=== PATIENT | male | born 1960 | race Caucasian/White ===

== ENCOUNTER 2016-10-30 02:14 | Emergency (ER) | payer BC, OTHER ==
[2016-10-30] MEDS ORDERED: NORMAL SALINE 1000 ML 1,000 ML IV ONE ×3 (02:47→07:11)
[2016-10-30] MEDS ORDERED: ONDANSETRON HCL INJ/PF 4 MG/2 ML SDV IV ONE ×3 (03:05→17:48)
[2016-10-30] MEDS ORDERED: FENTANYL CITRATE INJ/PF 100 MCG/2 ML AMPUL IV ONE ×5 (03:05→06:33)
--- NOTE | 2016-10-30 03:19 | RADIOLOGY REPORT (SQ) ---
EXAM DESCRIPTION: CHEST SINGLE VIEW COMPLETED DATE/TIME: 10/30/2016 3:00 am REASON FOR STUDY: hypotension COMPARISON: 06/02/2014. EXAM PARAMETERS: NUMBER OF VIEWS: One view. TECHNIQUE: Single frontal radiographic view of the chest acquired. RADIATION DOSE: NA LIMITATIONS: None. FINDINGS: LUNGS AND PLEURA: No opacities, masses or pneumothorax. No pleural effusion. MEDIASTINUM AND HILAR STRUCTURES: No masses. Contour normal. HEART AND VASCULAR STRUCTURES: Moderate enlargement of the cardiac silhouette, chronic. BONES: No acute findings. HARDWARE: None in the chest. OTHER: No other significant finding. IMPRESSION: NO ACUTE RADIOGRAPHIC FINDING IN THE CHEST. Moderate cardiac silhouette enlargement, ch ronic. TECHNICAL DOCUMENTATION: JOB ID: [id number]
[2016-10-30 03:20] LABS: VENOUS BLOOD BASE EXCESS 0.4 mmol/L; VENOUS BLOOD HCO3 27.9 mmol/L (20-32); VENOUS BLOOD PCO2 57.3 mmHg (35-63); VENOUS BLOOD PH 7.31 (7.30-7.42)
[2016-10-30 03:21] LABS: ABSOLUTE BASOPHILS # (AUTO) 0.1 10^3/uL (0.0-0.2); ABSOLUTE EOSINOPHILS # (AUTO) 0.3 10^3/uL (0.0-0.6); ABSOLUTE LYMPHOCYTES (AUTO) 3.1 10^3/uL (0.5-4.7); ABSOLUTE MONOCYTES (AUTO) 1.2 10^3/uL (0.1-1.4); ABSOLUTE NEUT (AUTO) 8.9 10^3/uL (1.7-8.2); BASOPHILS % (AUTO) 0.7 % (0-2); EOSINOPHILS % (AUTO) 2.4 % (0-6); HEMATOCRIT 43.3 % (37.9-51.0); HEMOGLOBIN 14.1 g/dL (13.5-17.0); LYMPHOCYTES % (AUTO) 22.9 % (13-45); MEAN CORPUSCULAR HEMOGLOBIN 29.2 pg (27.0-33.4); MEAN CORPUSCULAR HGB CONC 32.6 g/dL (32.0-36.0); MEAN CORPUSCULAR VOLUME 90 fl (80-97); MONOCYTES % (AUTO) 9.1 % (3-13); RED BLOOD COUNT 4.83 10^6/uL (4.35-5.55); RED CELL DISTRIBUTION WIDTH 14.2 % (11.5-14.0); SEGMENTED NEUTROPHILS % (AUTO) 64.9 % (42-78); WHITE BLOOD COUNT 13.6 10^3/uL (4.0-10.5)
[2016-10-30 03:23] LABS: PROTHROMBIN TIME 12.7 SEC (11.4-15.4)
[2016-10-30 03:33] LABS: ALANINE AMINOTRANSFERASE 42 U/L (21-72); ALBUMIN 4.3 g/dL (3.5-5.0); ALKALINE PHOSPHATASE 66 U/L (38-126); ANION GAP 13 (5-19); ASPARTATE AMINO TRANSFERASE 24 U/L (17-59); BILIRUBIN,DIRECT 0.3 mg/dL (0.0-0.4); BILIRUBIN,TOTAL 0.4 mg/dL (0.2-1.3); BLOOD UREA NITROGEN 18 mg/dL (7-20); CALCIUM 9.5 mg/dL (8.4-10.2); CARBON DIOXIDE 30 mmol/L (22-30); CHLORIDE 93 mmol/L (98-107); CREATINE KINASE 211 U/L (55-170); CREATININE RESULT 1.28 mg/dL (0.52-1.25); GLUCOSE 131 mg/dL (75-110); SODIUM 135.6 mmol/L (137-145)
[2016-10-30 03:44] LABS: CREATINE KINASE MB 1.28 ng/mL (<4.55)
[2016-10-30 03:49] LABS: LIPASE 14499.3 U/L (23-300)
[2016-10-30 03:51] LABS: TROPONIN I < 0.012 ng/mL
--- NOTE | 2016-10-30 04:52 | RADIOLOGY REPORT (SQ) ---
EXAM DESCRIPTION: CT ABD/PELVIS WITH IV ONLY COMPLETED DATE/TIME: 10/30/2016 4:26 am REASON FOR STUDY: abd pain ,n/v, hypotension, h/o pancreatitis COMPARISON: 3 TECHNIQUE: CT scan of the abdomen and pelvis performed using helical scanning technique with dynamic intravenous contrast injection. No oral contrast. Images reviewed with lung, soft tissue, and bone windows. Reconstructed coronal and sagittal MPR images reviewed. Delayed images for evaluation of the urinary system also acquired. All images stored on PACS. All CT scanners at this facility use dose modulation, iterative reconstruction, and/or weight based d osing when appropriate to reduce radiation dose to as low as reasonably achievable (ALARA). [facility]: Dose Right [facility]: CareDose [facility]: Dose Right [facility]: Teradose 4D [facility]: to be CONTRAST TYPE AND DOSE: contrast/concentration: Isovue 370.00 mg/ml; Total Contrast Delivered: 89.0 ml; Total Saline Delivered: 67.0 ml RENAL FUNCTION: Creatinine 1.3 RADIATION DOSE: Up-to-date CT equipment and radiation dose reduction techniques were employed. CTDIv ol: 13.2 mGy. DLP: 1482 mGy-cm.. LIMITATIONS: None. FINDINGS: LOWER CHEST: Small atelectasis or scar bilateral lower lobes. LIVER: Normal size. No masses. No dilated ducts. SPLEEN: Normal size. No focal lesions. PANCREAS: Partial, less than 30% necrosis of the pancreatic head and pancreatic body with moderate thornton rrounding fluid extending around the duodenum. There is edematous enlargement of the pancreatic head . GALLBLADDER: No identified stones by CT criteria. No inflammatory changes to suggest cholecystitis. ADRENAL GLANDS: No significant masses or asymmetry. RIGHT KIDNEY AND URETER: No solid masses. No significant calcifications. No hydronephrosis or hyd roureter. LEFT KIDNEY AND URETER: No solid masses. No significant calcifications. No hydronephrosis or hydr oureter. AORTA AND VESSELS: No aneurysm. No dissection. Renal arteries, SMA, celiac without stenosis. RETROPERITONEUM: No retroperitoneal adenopathy, hemorrhage or masses. BOWEL AND PERITONEAL CAVITY: No masses or inflammatory changes. No free fluid or peritoneal masses. APPENDIX: Normal. PELVIS: No mass. No free fluid. Normal bladder. ABDOMINAL WALL: No masses. No hernias. BONES: 0.8 cm bone island of the left superior pubic ramus. OTHER: No other significant finding. IMPRESSION: Partial necrotizing pancreatitis. TECHNICAL DOCUMENTATION: JOB ID: [id number] Quality ID # [id number]: Final reports with documentation of one or more dose reduction techniques (e.g., Au tomated exposure control, adjustment of the mA and/or kV according to patient size, use of iterative reconstruction technique) 2010 [employer]- All Rights Reserved
--- NOTE | 2016-10-30 05:31 | ER Document Report ---
ED GI/ - General Mode of Arrival: Medic Information source: Patient, Relative - Spouse TRAVEL OUTSIDE OF THE U.S. IN LAST 30 DAYS: No - HPI Patient complains to provider of: Abdominal pain <AURA MAK - Last Filed: 10/30/16 05:59> <CHRISTIANDONTE ANN - Last Filed: 10/30/16 06:09> - General Chief Complaint: Abdominal Pain Stated Complaint: ABDOMINAL PAIN Time Seen by Provider: 10/30/16 02:46 Notes: Patient is a 56-year-old male presenting emergency department for severe abdominal pain. Patient states his pain feels like something is pushing up into his ribs and states that it feels the same as when he last had pancreatitis. Patient had pancreatitis in 2014 and was transferred to [facility] for such. Patient is also having a low blood pressure and he usually has hypertension for which he takes lisinopril. Patient states that if he has to be transferred they would rather go to [place]. Patient is also having some slight back pain. Patient was given 80 mg fentanyl via EMS. Patient also complains of some nausea and distention. Patient denies any alcohol use or cigarette use. Patient is allergic to Dilaudid. PCP Dr. Vamsi Sinha [facility] (AURA MAK) - Related Data Allergies/Adverse Reactions: hydromorphone [From Dilaudid] Allergy (Verified 10/30/16 02:47) Home Medications: Current Home Medications Gabapentin 900 mg PO TID 10/30/16 [History] Lipase/Protease/Amylase [Jaja Tran 12,000 Units Capsule] 2 cap PO TID 10/30/16 [ History] Lisinopril/Hydrochlorothiazide [Lisinopril-Hctz 20-25 mg Tab] 1 each PO DAILY [History] Pantoprazole Sodium 40 mg PO DAILY 10/30/16 [History] Polyethylene Glycol 3350 [Gavilax] 17 gm PO DAILY 10/30/16 [History] Past Medical History - General Information source: Patient - Social History Smoking Status: Never Smoker Cigarette use (# per day): No Chew tobacco use (# tins/day): No Frequency of alcohol use: None Drug Abuse: None Family History: None Patient has suicidal ideation: No Patient has homicidal ideation: No - Medical History Medical History: Other - Pancreatitis - Past Medical History Cardiac Medical History: Reports: Hx Hypertension Pulmonary Medical History: Reports: Hx COPD GI Medical History: Reports: Other Past Surgical History: Reports: Hx Orthopedic Surgery - L elbow - Immunizations Hx Diphtheria, Pertussis, Tetanus Vaccination: Yes <AURA MAK - Last Filed: 10/30/16 05:59> Review of Systems - Review of Systems Constitutional: No symptoms reported EENT: No symptoms reported Cardiovascular: No symptoms reported Respiratory: No symptoms reported Gastrointestinal: See HPI, Abdomen distended, Abdominal pain, Nausea Genitourinary: No symptoms reported Male Genitourinary: No symptoms reported Musculoskeletal: No symptoms reported Skin: No symptoms reported Hematologic/Lymphatic: No symptoms reported Neurological/Psychological: No symptoms reported -: Yes All other systems reviewed and negative <OBDULIOAURA - Last Filed: 10/30/16 05:59> Physical Exam - Vital signs Interpretation: Hypotensive <AURA MAK - Last Filed: 10/30/16 05:59> - Vital signs Interpretation: Hypotensive - General In distress: Moderate - Respiratory Respiratory status: No respiratory distress Breath sounds: Normal - Cardiovascular Rhythm: Regular - Abdominal Distension: Distended Tenderness: Tender, Other - epigastric/periumbilical - Extremities General upper extremity: Normal inspection, Normal ROM General lower extremity: Normal inspection, Normal ROM - Neurological Neuro grossly intact: Yes Cognition: Normal Orientation: AAOx4 [place] Coma Scale Eye Opening: Spontaneous Sandra Coma Scale Verbal: Oriented Sandra Coma Scale Motor: Obeys Commands [place] Coma Scale Total: 15 Speech: Normal Motor strength normal: LUE, RUE, LLE, RLE Sensory: Normal - Skin Skin Temperature: Warm Skin Moisture: Dry Skin Color: Normal <DONTE GONZALES - Last Filed: 10/30/16 06:09> - Vital signs Vitals: Temp Pulse Resp BP Pulse Ox 97.3 F 59 L 28 H 60/40 L 94 10/30/16 02:24 10/30/16 02:24 10/30/16 02:24 10/30/16 02:24 10/30/16 02:24 Course - Laboratory Result Diagrams: 10/30/16 02:57 10/30/16 02:57 - Consults [facility] Transfer Line Time consulted: 05:10 Dr. Claudy Time consulted: 05:45 <AURA MAK - Last Filed: 10/30/16 05:59> - Laboratory Result Diagrams: 10/30/16 02:57 10/30/16 02:57 - Diagnostic Test Radiology reviewed: Reports reviewed <DONTE GONZALES - Last Filed: 10/30/16 06:09> - Re-evaluation Re-evalutation: 10/30/16 Patient is a 56-year-old male who presents with abdominal pain and nausea. Patient's initial blood pressure was 60/40. Patient has a history of necrotizing pancreatitis and had been transferred to [place] with similar symptoms in 2014. Patient was found to have a lipase of over 14,000. CT is also showing partial necrotizing pancreatitis. Patient's blood pressure has come up with fluids. The patient has been given fentanyl for pain. Patient was discussed with ICU [place] who does not feel that the patient is a ICU candidate at this time. Patient was discussed with the hospitalist service at [place] who will accept the patient to the MICU. Patient and family agree with this plan. Of note, there is no gastroenterology on today and the patient had a prolonged hospital course at [place] in 2014 with similar presentation and diagnosis. Patient is to remain n.p.o. Patient will stay on fluids and be given fentanyl for pain. Understands agrees with this plan. Stable at this time for transfer. No beds available. Care transferred to Dr. Vazquez at this time. (DONTE GONZALES) - Vital Signs Vital signs: Temp Pulse Resp BP Pulse Ox 97.3 F 59 L 16 118/83 100 10/30/16 02:24 10/30/16 02:24 10/30/16 05:31 10/30/16 05:31 10/30/16 05:31 - Laboratory Laboratory results interpreted by me: 10/30/16 10/30/16 02:57 02:57 WBC 13.6 H RDW 14.2 H Absolute Neutrophils 8.9 H Sodium 135.6 L Potassium 3.0 L* Chloride 93 L Creatinine 1.28 H Est GFR (Non-Af Amer) 58 L Glucose 131 H Creatine Kinase 211 H Lipase 37180.3 H - Consults [facility] Transfer [facility] Reason for consultation: 10/30/16 05:10 Contacted [facility] for possible transfer. 10/30/16 05:23 Spoke with the interventionalist Dr. Mera who does not think the patient needs to be in ICU. 10/30/16 05:40 Spoke with [facility], the patient will be accepted for transfer but there are not beds and he will be placed on the list for a MIU bed. (AURA MAK) Dr. Loco Reason for consultation: 10/30/16 05:[address] Loco about patient. There are no beds here. (AURA MAK) Critical Care Note - Critical Care Note Total time excluding time spent on procedures (mins): 45 - Management of hypotension, resuscitation, diagnosis of pancreatitis, coordination of transfer , counseling of patient and family, multiple re-evaluations <DONTE GONZALES - Last Filed: 10/30/16 06:09> Discharge <AURA MAK - Last Filed: 10/30/16 05:59> <DONTE GONZALES - Last Filed: 10/30/16 06:09> - Discharge Clinical Impression: Acute necrotizing pancreatitis Condition: Stable Disposition: DOTDAMADDIE Referrals: SUSHIL BELCHER MD [Primary Care Provider] - Follow up as needed Scribe Attestation: 10/30/16 06:08 I personally performed the services described in the documentation, reviewed and edited the documentation which was dictated to the scribe in my presence, and it accurately records my words and actions. (DONTE GONZALES) Scribe Documentation - Scribe Written by Andree:: Andree Mcdaniels, 10/30/2016 5:32 acting as scribe for :: Christian <AURA MAK - Last Filed: 10/30/16 05:59>
[2016-10-30] MEDS: POTASSI CL 20 MEQ/50 ML RIDER 20 MEQ/50 ML RTUPB IV SCH ×2 (06:30→09:00)
--- NOTE | 2016-10-30 08:06 | EKG REPORT ---
SEVERITY:- ABNORMAL ECG - SINUS RHYTHM INFERIOR INFARCT, AGE INDETERMINATE CONSIDER ANTERIOR INFARCT : Confirmed by: Steven Alvarado MD 30-Oct-2016 08:05:48
[2016-10-30 08:37] LABS: APPEARANCE,URINE CLEAR; BILIRUBIN,URINE NEGATIVE (NEGATIVE); GLUCOSE, URINE NEGATIVE (NEGATIVE); KETONES,URINE NEGATIVE (NEGATIVE); LEUKOCYTE ESTERASE,URINE NEGATIVE (NEGATIVE); NITRITE,URINE NEGATIVE (NEGATIVE); PROTEIN,URINE NEGATIVE (NEGATIVE); URINE SPECIFIC GRAVITY 1.027; UROBILINOGEN,URINE NEGATIVE mg/dL (<2.0)
[2016-10-30] MEDS: MORPHINE SULFATE 10 MG/ML INJ IV SCH ×5 (08:57→21:22)
[2016-10-31] MEDS: MORPHINE SULFATE 10 MG/ML INJ IV SCH ×5 (00:32→15:08)
[2016-10-31] MEDS ORDERED: ONDANSETRON HCL INJ/PF 4 MG/2 ML SDV IV ONE (08:27)
[2016-10-31 09:26] LABS: HEMATOCRIT 44.3 % (37.9-51.0); HEMOGLOBIN 14.9 g/dL (13.5-17.0); HGB HCT DIFFERENCE 0.4; MEAN CORPUSCULAR HEMOGLOBIN 29.9 pg (27.0-33.4); MEAN CORPUSCULAR HGB CONC 33.6 g/dL (32.0-36.0); MEAN CORPUSCULAR VOLUME 89 fl (80-97); RED BLOOD COUNT 4.99 10^6/uL (4.35-5.55); RED CELL DISTRIBUTION WIDTH 14.4 % (11.5-14.0); WHITE BLOOD COUNT 21.1 10^3/uL (4.0-10.5)
[2016-10-31 09:40] LABS: ALANINE AMINOTRANSFERASE 32 U/L (21-72); ALBUMIN 3.8 g/dL (3.5-5.0); ALKALINE PHOSPHATASE 64 U/L (38-126); ANION GAP 7 (5-19); ASPARTATE AMINO TRANSFERASE 25 U/L (17-59); BILIRUBIN,DIRECT 0.3 mg/dL (0.0-0.4); BILIRUBIN,TOTAL 0.7 mg/dL (0.2-1.3); BLOOD UREA NITROGEN 19 mg/dL (7-20); CALCIUM 8.5 mg/dL (8.4-10.2); CARBON DIOXIDE 29 mmol/L (22-30); CHLORIDE 99 mmol/L (98-107); CREATININE RESULT 0.77 mg/dL (0.52-1.25); GLUCOSE 140 mg/dL (75-110); POTASSIUM 4.2 mmol/L (3.6-5.0); TOTAL PROTEIN 6.7 g/dL (6.3-8.2)
[2016-10-31 09:42] LABS: BAND NEUTROPHILS % (MANUAL) 2 % (3-5); BASOPHILS % (MANUAL) 0 % (0-2); EOSINOPHILS % (MANUAL) 0 % (0-6); LYMPHOCYTES % (MANUAL) 3 % (13-45); TOTAL CELLS COUNTED 100
[2016-10-31 09:45] LABS: RBC MORPHOLOGY COMMENT NORMO-CYTIC/CHROMIC; TOXIC VACUOLATION PRESENT
[2016-10-31 09:47] LABS: LIPASE 3616.6 U/L (23-300)
[2016-10-31] MEDS ORDERED: NORMAL SALINE 1000 ML 1,000 ML IV ONE ×2 (12:02)
[2016-10-31] MEDS ORDERED: KETOROLAC TROMETHAMINE INJ/PF 30 MG/1 ML SDV IV ONE (12:31)
--- NOTE | 2016-10-31 13:15 | ER Document Report ---
Doctor's Note Notes: Assumed care of patient after learning that patient would probably remain on the transfer waiting list at [facility] with no bed available for at least another 24 hours. Chart reviewed and patient interviewed and examined briefly. Patient has been maintaining an acceptable blood pressure, but has gotten mildly tachycardic during the past several hours. He remains afebrile. He complains of headache and thirst. On examination, patient is alert, oriented, and cooperative. He is mildly tachycardic, with a pulse rate slightly in excess of 100. Blood pressure is 139 /95. He is afebrile. Mucous membranes are mildly dry. Lungs are clear to auscultation. Heart is regular with no murmurs. Abdomen is mildly protuberant , and there is slight generalized tenderness. The rest of the examination is unremarkable. Discussed with patient and spouse the need for transfer to higher level of care and the difficulty finding available bed space and divided. They both are agreeable to seeking transfer elsewhere. I spoke by telephone with the transfer center at [facility], and with Dr. Leavitt at that facility. Dr. Leavitt accepts patient for transfer. Transfer center states they will send an ambulance unit for transfer , should be arriving in approximately 2 hours.
[2016-10-31 15:10] VITALS: BP 121/94
--- NOTE | 2016-10-31 15:20 | ER Document Report ---
Doctor's Note Notes: 10/31/16 15:19 Reevaluation: Transport team from [facility] is present in the department. Patient is alert, oriented, and in no distress. Vital signs are stable. Patient is subjectively unchanged. He is stable for transport.
== END 2016-10-31 15:20 | disposition short-term general hospital (02) ==
LOC: ER 02:14
DX: K85.81 Other acute pancreatitis with uninfected necrosis (principal); R10.9 Unspecified abdominal pain; I95.9 Hypotension, unspecified; R11.0 Nausea; R14.0 Abdominal distension (gaseous); Z79.899 Other long term (current) drug therapy
CPT/HCPCS: 93005; 96376; 99291; 96374; 96375; 36415; 87040; 87086; 82553; 82550; 83690; 85025; 85610; 80053; 81001; 84484; 82803; 83605; 71010; 74177; 93010; J3010; J1885; J2270 ×2; J2405 ×2; J3480; J7030 ×2

== ENCOUNTER 2016-11-12 11:58 | Inpatient (IN) | payer OTHER ==
[2016-11-12 12:56] LABS: ABSOLUTE BASOPHILS # (AUTO) 0.1 10^3/uL (0.0-0.2); ABSOLUTE EOSINOPHILS # (AUTO) 0.1 10^3/uL (0.0-0.6); ABSOLUTE LYMPHOCYTES (AUTO) 0.9 10^3/uL (0.5-4.7); ABSOLUTE MONOCYTES (AUTO) 0.9 10^3/uL (0.1-1.4); ABSOLUTE NEUT (AUTO) 10.8 10^3/uL (1.7-8.2); BASOPHILS % (AUTO) 0.6 % (0-2); EOSINOPHILS % (AUTO) 0.8 % (0-6); HEMATOCRIT 35.8 % (37.9-51.0); HGB HCT DIFFERENCE 0.2; LYMPHOCYTES % (AUTO) 7.2 % (13-45); MEAN CORPUSCULAR HEMOGLOBIN 29.5 pg (27.0-33.4); MEAN CORPUSCULAR HGB CONC 33.6 g/dL (32.0-36.0); MEAN CORPUSCULAR VOLUME 88 fl (80-97); RED BLOOD COUNT 4.08 10^6/uL (4.35-5.55); RED CELL DISTRIBUTION WIDTH 14.8 % (11.5-14.0); SEGMENTED NEUTROPHILS % (AUTO) 84.4 % (42-78); WHITE BLOOD COUNT 12.8 10^3/uL (4.0-10.5)
[2016-11-12] MEDS ORDERED: ONDANSETRON HCL INJ/PF 4 MG/2 ML SDV IV ONE ×2 (12:59→16:08)
[2016-11-12] MEDS ORDERED: MORPHINE SULFATE 10 MG/ML INJ IV ONE ×3 (12:59→18:10)
[2016-11-12] MEDS ORDERED: NORMAL SALINE 1000 ML 1,000 ML IV PRN (12:59)
[2016-11-12 13:09] LABS: APPEARANCE,URINE CLEAR; BILIRUBIN,URINE NEGATIVE (NEGATIVE); GLUCOSE, URINE NEGATIVE (NEGATIVE); KETONES,URINE 80 mg/dL (NEGATIVE); LEUKOCYTE ESTERASE,URINE TRACE (NEGATIVE); NITRITE,URINE NEGATIVE (NEGATIVE); PROTEIN,URINE 30 mg/dL (NEGATIVE); URINE SPECIFIC GRAVITY 1.019; UROBILINOGEN,URINE NEGATIVE mg/dL (<2.0)
[2016-11-12 13:28] LABS: ALANINE AMINOTRANSFERASE 57 U/L (21-72); ALKALINE PHOSPHATASE 238 U/L (38-126); ANION GAP 16 (5-19); ASPARTATE AMINO TRANSFERASE 41 U/L (17-59); BILIRUBIN,DIRECT 0.6 mg/dL (0.0-0.4); BILIRUBIN,TOTAL 0.9 mg/dL (0.2-1.3); BLOOD UREA NITROGEN 19 mg/dL (7-20); CALCIUM 9.7 mg/dL (8.4-10.2); CARBON DIOXIDE 24 mmol/L (22-30); CHLORIDE 95 mmol/L (98-107); CREATININE RESULT 0.63 mg/dL (0.52-1.25); GLUCOSE 115 mg/dL (75-110); LIPASE 225.3 U/L (23-300); POTASSIUM 4.6 mmol/L (3.6-5.0); SODIUM 134.8 mmol/L (137-145); TOTAL PROTEIN 7.5 g/dL (6.3-8.2)
[2016-11-12] MEDS ORDERED: MAG HYDROX/AL HYDROX/SIMETH SUSP 30 ML UDCUP PO ONE (13:59)
[2016-11-12] MEDS ORDERED: LIDOCAINE 2% VISCOUS SOLN 20 ML UDCUP PO ONE (13:59)
[2016-11-12] MEDS ORDERED: METOCLOPRAMIDE HCL ORAL SOLN 10 MG/10 ML UDCUP PO ONE (13:59)
--- NOTE | 2016-11-12 14:15 | ER Document Report ---
ED GI/ - General Chief Complaint: Abdominal Pain Stated Complaint: ABDOMINAL PAIN Time Seen by Provider: 11/12/16 12:25 Mode of Arrival: Ambulatory Information source: Patient TRAVEL OUTSIDE OF THE [place] IN LAST 30 DAYS: No - HPI Patient complains to provider of: Abdominal pain, Vomiting Onset: Last week Timing/Duration: Gradual, Persistent, Worse Quality of pain: Fullness, Pressure Severity at maximum: Severe Severity in ED: Moderate, Severe Pain Level: 4 Location: Epigastric Associated symptoms: Constipation, Nausea, Vomiting Similar symptoms previously: Yes Recently seen / treated by doctor: Yes Notes: 11/12/16 19:27 Patient is a 56-year-old male presenting to the emergency room for the second time in 2 weeks complaining of epigastric abdominal pain with nausea and vomiting, he was seen at this facility on October 30 and transferred to tertiary care center for diagnosis of necrotizing pancreatitis, he states he was admitted for a few days received IV fluids and hydration and then was discharged , his pain has worsened throughout the last few days - Related Data Allergies/Adverse Reactions: hydromorphone [From Dilaudid] Allergy (Verified 10/30/16 02:47) Home Medications: Current Home Medications Albuterol Sulfate [Proair HFA] 1 puff IH Q6HP PRN 11/12/16 [History] Ferrous Sulfate 324 mg PO ACBRKFST 11/12/16 [History] Gabapentin [Neurontin] 900 mg PO Q8 11/12/16 [History] Lactulose 10 gm PO Q8 11/12/16 [History] Lipase/Protease/Amylase [Jaja Dr 24,000 Units Capsule] 2 cap PO MEALS 11/12/16 [History] Lisinopril/Hydrochlorothiazide [Zestoretic 20-25 mg Tablet] 1 tab PO DAILY 11/12 [History] Meclizine HCl 25 mg PO Q8HP PRN 11/12/16 [History] Mometasone/Formoterol [Dulera 200 Mcg/5 Mcg Inhaler] 2 puff IH DAILY 11/12/16 [ History] Multivitamins W-Iron [Flintstones Chewable Multivit W/Fe Tab] 1 tab PO DAILY [History] Naproxen 500 mg PO BIDBS 11/12/16 [History] Oxycodone HCl [Oxy-Ir 5 mg Tablet] 5 mg PO Q6HP PRN 11/12/16 [History] Pantoprazole Sodium [Protonix] 40 mg PO DAILY 11/12/16 [History] Polyethylene Glycol 3350 [Miralax Powder 17 gm/Packet] 17 gm PO DAILY 11/12/16 [ History] Past Medical History - General Information source: Patient, Relative - Social History Smoking Status: Former Smoker Chew tobacco use (# tins/day): No Frequency of alcohol use: None Drug Abuse: None Family History: None Patient has suicidal ideation: No Patient has homicidal ideation: No - Past Medical History Cardiac Medical History: Reports: Hx Hypertension Pulmonary Medical History: Reports: Hx COPD Renal/ Medical History: Denies: Hx Peritoneal Dialysis Surgical Hx: Other Past Surgical History: Reports: Hx Orthopedic Surgery - L elbow - Immunizations Hx Diphtheria, Pertussis, Tetanus Vaccination: Yes Review of Systems - Review of Systems Constitutional: No symptoms reported EENT: No symptoms reported Cardiovascular: No symptoms reported Respiratory: No symptoms reported Gastrointestinal: See HPI Genitourinary: No symptoms reported Male Genitourinary: No symptoms reported Musculoskeletal: No symptoms reported Skin: No symptoms reported Hematologic/Lymphatic: No symptoms reported Neurological/Psychological: No symptoms reported -: Yes All other systems reviewed and negative Physical Exam - Vital signs Vitals: BP Pulse Ox 139/96 H 96 11/12/16 12:13 11/12/16 12:13 Interpretation: Tachycardic - General General appearance: Alert In distress: Mild - HEENT Head: Normocephalic, Atraumatic Eyes: Normal Conjunctiva: Normal Extraocular movements intact: Yes Eyelashes: Normal Pupils: PERRL Mucous membranes: Dry - Respiratory Respiratory status: No respiratory distress Chest status: Nontender Breath sounds: Normal Chest palpation: Normal - Cardiovascular Rhythm: Regular Heart sounds: Normal auscultation Murmur: No - Abdominal Inspection: Normal Distension: Distended Bowel sounds: Hypoactive Tenderness: Tender - Epigastric tenderness and fullness - Back Back: Normal, Nontender - Extremities General upper extremity: Normal inspection, Nontender, Normal color, Normal ROM , Normal temperature General lower extremity: Normal inspection, Nontender, Normal color, Normal ROM , Normal temperature, Normal weight bearing. No: Ramírez's sign - Neurological Neuro grossly intact: Yes Cognition: Normal Orientation: AAOx4 Sandra Coma Scale Eye Opening: Spontaneous [place] Coma Scale Verbal: Oriented Sandra Coma Scale Motor: Obeys Commands Sandra Coma Scale Total: 15 Speech: Normal Motor strength normal: LUE, RUE, LLE, RLE Sensory: Normal - Psychological Associated symptoms: Normal affect, Normal mood - Skin Skin Temperature: Warm Skin Moisture: Dry Skin Color: Normal Course - Re-evaluation Re-evalutation: 11/12/16 19:24 Patient is a 56-year-old male with increasing upper abdominal pain, nausea and vomiting, slightly tachycardic in the department, CT scan findings are consistent with a large 9 cm pancreatic pseudocyst which was not evident on previous CT scan performed approximately 2 weeks ago, therefore our surgeon Dr. Garcia was consulted Dr. 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 Marci Jose,, who recommends patient be discussed with and transferred to medicine service with GI consult as they will not perform any type of surgery at this point in time I requested that the transfer center consult medicine for transfer of patient 11/12/16 19:25 11/12/16 20:[address] Morris Lin, Hospitalist at [facility] who accepts patient for transfer 11/12/16 20:34 Patient was discussed with Dr. Dyer again, he will admit the patient to the ICU here at [facility] until a bed becomes available at tertiary [facility], this plan was discussed with patient and spouse at bedside who are in agreement - Vital Signs Vital signs: Temp Pulse Resp BP Pulse Ox 97.9 F 108 H 22 H 142/94 H 92 11/12/16 18:43 11/12/16 18:43 11/12/16 16:22 11/12/16 19:00 11/12/16 19:01 - Laboratory Result Diagrams: 11/12/16 12:37 11/12/16 12:37 Laboratory results interpreted by me: 11/12/16 11/12/16 11/12/16 12:37 12:37 12:45 WBC 12.8 H RBC 4.08 L Hgb 12.0 L Hct 35.8 L RDW 14.8 H Seg Neutrophils % 84.4 H Lymphocytes % 7.2 L Absolute Neutrophils 10.8 H Sodium 134.8 L Chloride 95 L Glucose 115 H Direct Bilirubin 0.6 H Alkaline Phosphatase 238 H Urine Protein 30 H Urine Ketones 80 H Ur Leukocyte Esterase TRACE H - Diagnostic Test Radiology reviewed: Image reviewed, Reports reviewed Discharge - Discharge Clinical Impression: Pancreatic pseudocyst Condition: Fair Disposition: ADMITTED INPATIENT Admitting Provider: Surgicalist Unit Admitted: ICU
--- NOTE | 2016-11-12 17:40 | RADIOLOGY REPORT (SQ) ---
EXAM DESCRIPTION: CT ABD/PELVIS WITH IV ORAL COMPLETED DATE/TIME: 11/12/2016 5:09 pm REASON FOR STUDY: abdominal pain COMPARISON: 05/31/2014 TECHNIQUE: CT scan of the abdomen and pelvis performed using helical scanning technique with dynamic intravenous contrast injection. Oral contrast. Images reviewed with lung, soft tissue, and bone win dows. Reconstructed coronal and sagittal MPR images reviewed. Delayed images for evaluation of the ur inary system also acquired. All images stored on PACS. All CT scanners at this facility use dose modulation, iterative reconstruction, and/or weight based d osing when appropriate to reduce radiation dose to as low as reasonably achievable (ALARA). [facility]: Dose Right [facility]: CareDose [facility]: Dose Right [facility]: Teradose 4D [facility]: Endosee CONTRAST TYPE AND DOSE: contrast/concentration: Isovue 370.00 mg/ml; Total Contrast Delivered: 91.0 ml; Total Saline Delivered: 70.0 ml RENAL FUNCTION: Creatinine 0.6 BUN 19 RADIATION DOSE: Up-to-date CT equipment and radiation dose reduction techniques were employed. CTDIv ol: 7.5 - 10.4 mGy. DLP: 1062 mGy-cm.. LIMITATIONS: None. FINDINGS: LOWER CHEST: Mild subsegmental atelectasis in the lung bases. LIVER: Normal size. No masses. No dilated ducts. There is now a large fluid collection beneath the left lobe of the liver extending to the pancreas. SPLEEN: Normal size. No focal lesions. PANCREAS: There is a very large fluid collection associated with the pancreas. This is somewhat mult iloculated. This has a maximum diameter of 9 cm. The head and tail of the pancreas are more normal in appearance. GALLBLADDER: Distended. No stones. ADRENAL GLANDS: No significant masses or asymmetry. RIGHT KIDNEY AND URETER: No solid masses. No significant calcifications. No hydronephrosis or hyd roureter. LEFT KIDNEY AND URETER: No solid masses. No significant calcifications. No hydronephrosis or hydr oureter. AORTA AND VESSELS: No aneurysm. No dissection. Renal arteries, SMA, celiac without stenosis. RETROPERITONEUM: No retroperitoneal adenopathy, hemorrhage or masses. BOWEL AND PERITONEAL CAVITY: There is a large amount of large bowel gas. The small bowel is unremark able. APPENDIX: Not identified. PELVIS: The urinary bladder is normal. The prostate gland and seminal vesicles are unremarkable. ABDOMINAL WALL: No masses. No hernias. BONES: No significant or acute findings. OTHER: No other significant finding. IMPRESSION: There is a very large pancreatic pseudocyst with marked progression of disease since the earlier study of October 30. TECHNICAL DOCUMENTATION: JOB ID: [id number] Quality ID # [id number]: Final reports with documentation of one or more dose reduction techniques (e.g., Au tomated exposure control, adjustment of the mA and/or kV according to patient size, use of iterative reconstruction technique) 2010 [employer]- All Rights Reserved
--- NOTE | 2016-11-12 20:13 | PDOC H&P ---
History of Present Illness Admission Date/PCP: 11/12/16 18:15 Patient complains of: Recurrent abdominal pain as result of chronic pancreatitis. History of Present Illness: DARRIAN BYRD is a 56 year old male presenting to the emergency room for the second time in 2 weeks complaining of epigastric abdominal pain with nausea and vomiting, he was seen at this facility on October 30 and transferred to tertiary care center for diagnosis of necrotizing pancreatitis, he states he was admitted for a few days received IV fluids and hydration and then was discharged , his pain has worsened throughout the last few days. Upon admission to [facility], he was found to have a lipase greater than 14,[address] scan show evidence of necrotizing pancreatitis. Patient had a prior and first episode of pancreatitis in 2014 which was complicated by respiratory failure requiring frequent intubations and eventual tracheostomy. Patient also went into renal failure at that time. However there was no surgical intervention. While at [facility], patient's lipase went down to 3600, and repeat CT scan there, revealed a 6 cm pancreatic pseudocyst. However, there was no ascites noted on that admission. However, CT scan revealed less than 30% necrosis of the pancreatic head and pancreatic body with moderate amount of fluid surrounding the duodenum. The patient condition improved while at [facility], with normalization of his leukocytosis and significant reduction in his lipase to 1883 on 11/01/2016. Patient was told that the pseudocyst would dissolve, according to his , and he was discharged home, after some mild to moderate clinical improvement. However, the patient now returns to this emergency room, complaining of significant abdominal pain, distention, and distress. Because of our limitations, it has been advised that the patient be transferred to [facility], where he can eventually have endoscopic cyst gastrostomy by ultrasound guidance. However , if deterioration of his cardiovascular status was to occur before the cyst is mature (6 weeks required), he would need CT-guided drainage of his ascites versus intraoperative placement of peripancreatic drains to temporize his pancreatitis until the cyst is mature enough for decompression. At this time, there are no beds at [facility] to accept this patient. Surgical admission has been advised at this time until a bed is available at [facility]. Past Medical History Cardiac Medical History: Reports: Hypertension Pulmonary Medical History: Reports: Chronic Obstructive Pulmonary Disease (COPD) Past Surgical History Past Surgical History: Reports: Orthopedic Surgery - L elbow Social History Smoking Status: Former Smoker Frequency of Alcohol Use: None Hx Recreational Drug Use: No Hx Prescription Drug Abuse: No Family History Family History: None Parental Family History Reviewed: No Children Family History Reviewed: No Sibling(s) Family History Reviewed.: No Medication/Allergy Home Medications: Albuterol Sulfate [Proair HFA] 1 puff IH Q6HP PRN 11/12/16 Ferrous Sulfate 324 mg PO ACBRKFST 11/12/16 Gabapentin [Neurontin] 900 mg PO Q8 11/12/16 Lactulose 10 gm PO Q8 11/12/16 Lipase/Protease/Amylase [Creon Dr 24,000 Units Capsule] 2 cap PO MEALS 11/12/16 Lisinopril/Hydrochlorothiazide [Zestoretic 20-25 mg Tablet] 1 tab PO DAILY 11/12 Meclizine HCl 25 mg PO Q8HP PRN 11/12/16 Mometasone/Formoterol [Dulera 200 Mcg/5 Mcg Inhaler] 2 puff IH DAILY 11/12/16 Multivitamins W-Iron [Flintstones Chewable Multivit W/Fe Tab] 1 tab PO DAILY Naproxen 500 mg PO BIDBS 11/12/16 Oxycodone HCl [Oxy-Ir 5 mg Tablet] 5 mg PO Q6HP PRN 11/12/16 Pantoprazole Sodium [Protonix] 40 mg PO DAILY 11/12/16 Polyethylene Glycol 3350 [Miralax Powder 17 gm/Packet] 17 gm PO DAILY 11/12/16 Allergies/Adverse Reactions: hydromorphone [From Dilaudid] Allergy (Verified 10/30/16 02:47) Physical Exam Vital Signs: Temp Pulse Resp BP Pulse Ox 97.9 F 108 H 22 H 142/94 H 92 11/12/16 18:43 11/12/16 18:43 11/12/16 16:22 11/12/16 19:00 11/12/16 19:01 General appearance: PRESENT: mild distress, thin Head exam: PRESENT: atraumatic, normocephalic Eye exam: PRESENT: conjunctiva pink Neck exam: PRESENT: full ROM, lymphadenopathy. ABSENT: JVD, tenderness, thyromegaly, tracheal deviation Cardiovascular exam: PRESENT: tachycardia. ABSENT: RRR GI/Abdominal exam: PRESENT: ascites, diminished bowel sounds, distended, firm, guarding, tenderness Psychiatric exam: PRESENT: agitated, anxious Results Impressions: Abdomen/Pelvis CT 11/12/16 13:54 IMPRESSION: There is a very large pancreatic pseudocyst with marked progression of disease since the earlier study of October 30. Assessment & Plan - Plan Summary Plan Summary: Will place patient in the ICU, with aggressive fluid resuscitation, pain control , antibiotic therapy, respiratory support until a bed is available at [facility] for transfer.
[2016-11-12] MEDS ORDERED: ENOXAPARIN SODIUM INJ 40 MG/0.4 ML DISP.SYRIN SUBCUT ONE (21:00)
[2016-11-12] MEDS: METRONIDAZOLE 500 MG/NS RTU 100 ML IV SCH (21:13)
[2016-11-12] MEDS: NORMAL SALINE 1000 ML 1,000 ML IV PRN (21:14)
[2016-11-12 22:03] LABS: ARTERIAL BLOOD BASE EXCESS 1.3 mmol/L; ARTERIAL BLOOD O2 SATURATION 81.1 % (94-98)
[2016-11-12] MEDS: FAMOTIDINE INJ/PF 20 MG/2 ML SDV IV SCH (22:35)
[2016-11-12] MEDS: CIPROFLOXACIN 400 MG/D5W RTU 400 MG/200 ML RTUPB IV SCH (22:35)
[2016-11-12] MEDS ORDERED: MORPHINE SULFATE 10 MG/ML INJ INJ ONE (23:00)
[2016-11-12] MEDS: ONDANSETRON HCL INJ/PF 4 MG/2 ML SDV IV PRN (23:04)
[2016-11-12] MEDS: MORPHINE SULFATE 10 MG/ML INJ IV PRN (23:04)
--- NOTE | 2016-11-13 01:07 | RADIOLOGY REPORT (SQ) ---
EXAM DESCRIPTION: CHEST SINGLE VIEW COMPLETED DATE/TIME: 11/13/2016 12:06 am REASON FOR STUDY: CENTRAL LINE PLACEMENT COMPARISON: CT, 11/12/2016. EXAM PARAMETERS: NUMBER OF VIEWS: One view. TECHNIQUE: Single frontal radiographic view of the chest acquired. RADIATION DOSE: NA LIMITATIONS: None. FINDINGS: LUNGS AND PLEURA: Moderate lung volumes. Minimal bibasilar atelectasis or scar as correla tracie with CT, 11/12/2016. MEDIASTINUM AND HILAR STRUCTURES: No masses. Contour normal. HEART AND VASCULAR STRUCTURES: Heart normal in size. Normal vasculature. BONES: No acute findings. HARDWARE: Right internal jugular central line tip at the inferior aspect of the cavoatrial junction; consider 3 cm retraction. OTHER: No other significant finding. IMPRESSION: Moderate lung volumes with minimal bibasilar atelectasis or scar. Right IJ line. TECHNICAL DOCUMENTATION: JOB ID: [id number]
--- NOTE | 2016-11-13 02:47 | OPERATIVE REPORT E ---
Operative Report NAME: DARRIAN BYRD : 1960 AGE: 56Y DATE OF SURGERY: 11/12/2016 ROOM: 603 PREOPERATIVE DIAGNOSES: 1. Inadequate peripheral venous access and need for central venous access for monitoring of central venous pressure and infusions. 2. Acute pancreatitis with pancreatic pseudocyst. POSTOPERATIVE DIAGNOSES: 1. Inadequate peripheral venous access and need for central venous access for monitoring of central venous pressure and infusions. 2. Acute pancreatitis with pancreatic pseudocyst. PROCEDURE: Insertion of right internal jugular vein triple-lumen catheter. SURGEON: SISSY BEASLEY M.D. ANESTHESIA: Local, 1% Xylocaine. COMPLICATIONS: None. CONDITION: Stable. INDICATIONS FOR PROCEDURE: This 56-year-old male presents to hospital with acute pancreatitis and a pancreatic pseudocyst. The patient is in significant pain and needs significant volume resuscitation, CVP monitoring possibly and access for possibly TPN. PROCEDURE: After consent was obtained, the patient's right neck was prepped and draped in usual sterile manner. Timeout was achieved and then the right anterior triangle was visualized and just at the mid portion of the triangle local anesthesia was injected. We created a wheal and then a stab wound was made in the wheal and then the right internal jugular vein was accessed percutaneously. With the flash of venous blood in the syringe, the syringe was removed and a guidewire was advanced through the needle into the superior vena cava presumably. There was no ectopy noted. Vein dilator was placed over the guidewire and then using the sterile Seldinger technique, triple-lumen catheter was advanced over the guidewire and advanced to 20 cm until the catheter was presumably in the superior vena cava next to the right atrium. There was good antegrade and retrograde flow through each lumen and each was flushed with saline. We secured the catheter at the 20 cm sanjeev with 2-0 silk and then the Biopatch and Tegaderm were placed over the catheter. Portable chest x-ray revealed the catheter in the superior vena cava. The patient tolerated the procedure well and the central venous catheter can now be accessed. DICTATING PHYSICIAN: SISSY BEASLEY M.D. [id number] PHY#: [id number] ID: [id number] JOB#: [id number] ACCT: [id number] cc:SISSY BEASLEY M.D. >
[2016-11-13] MEDS: METRONIDAZOLE 500 MG/NS RTU 100 ML IV SCH ×4 (03:20→20:12)
[2016-11-13] MEDS: MORPHINE SULFATE 10 MG/ML INJ IV PRN ×8 (03:25→23:37)
[2016-11-13] MEDS: NORMAL SALINE 1000 ML 1,000 ML IV PRN ×4 (05:06→20:11)
[2016-11-13 06:07] LABS: ABSOLUTE BASOPHILS # (AUTO) 0.1 10^3/uL (0.0-0.2); ABSOLUTE EOSINOPHILS # (AUTO) 0.1 10^3/uL (0.0-0.6); ABSOLUTE LYMPHOCYTES (AUTO) 1.1 10^3/uL (0.5-4.7); ABSOLUTE MONOCYTES (AUTO) 1.1 10^3/uL (0.1-1.4); ABSOLUTE NEUT (AUTO) 9.5 10^3/uL (1.7-8.2); BASOPHILS % (AUTO) 0.4 % (0-2); EOSINOPHILS % (AUTO) 0.7 % (0-6); HEMATOCRIT 34.1 % (37.9-51.0); HEMOGLOBIN 11.6 g/dL (13.5-17.0); HGB HCT DIFFERENCE 0.7; LYMPHOCYTES % (AUTO) 9.1 % (13-45); MEAN CORPUSCULAR HGB CONC 33.9 g/dL (32.0-36.0); MEAN CORPUSCULAR VOLUME 89 fl (80-97); MONOCYTES % (AUTO) 9.3 % (3-13); RED BLOOD COUNT 3.86 10^6/uL (4.35-5.55); RED CELL DISTRIBUTION WIDTH 14.8 % (11.5-14.0); SEGMENTED NEUTROPHILS % (AUTO) 80.5 % (42-78); WHITE BLOOD COUNT 11.9 10^3/uL (4.0-10.5)
[2016-11-13 06:20] LABS: ALANINE AMINOTRANSFERASE 47 U/L (21-72); ALBUMIN 2.9 g/dL (3.5-5.0); ALKALINE PHOSPHATASE 170 U/L (38-126); AMYLASE 213 U/L (30-110); ANION GAP 11 (5-19); ASPARTATE AMINO TRANSFERASE 13 U/L (17-59); BILIRUBIN,DIRECT 0.4 mg/dL (0.0-0.4); BILIRUBIN,TOTAL 0.7 mg/dL (0.2-1.3); BLOOD UREA NITROGEN 15 mg/dL (7-20); CALCIUM 8.4 mg/dL (8.4-10.2); CARBON DIOXIDE 24 mmol/L (22-30); CHLORIDE 99 mmol/L (98-107); CHOLESTEROL 150.24 mg/dL (0-200); CREATININE RESULT 0.64 mg/dL (0.52-1.25); Direct HDL 27 mg/dL (>40); GLUCOSE 96 mg/dL (75-110); LIPASE 247.3 U/L (23-300); POTASSIUM 4.4 mmol/L (3.6-5.0); TOTAL PROTEIN 5.7 g/dL (6.3-8.2); TRIGLYCERIDES 102 mg/dL (<150)
[2016-11-13 06:31] LABS: DIRECT LDL 99 mg/dL (<100)
[2016-11-13] MEDS ORDERED: KETOROLAC TROMETHAMINE INJ/PF 30 MG/1 ML SDV ONE (07:03)
[2016-11-13] MEDS: KETOROLAC TROMETHAMINE INJ/PF 30 MG/1 ML SDV INJ PRN ×3 (07:07→17:37)
[2016-11-13] MEDS ORDERED: MORPHINE SULFATE 10 MG/ML INJ IV PRN (07:27)
[2016-11-13] MEDS: FAMOTIDINE INJ/PF 20 MG/2 ML SDV IV SCH ×2 (09:55→21:56)
[2016-11-13] MEDS: ENOXAPARIN SODIUM INJ 40 MG/0.4 ML DISP.SYRIN SUBCUT SCH (09:55)
[2016-11-13] MEDS: CIPROFLOXACIN 400 MG/D5W RTU 400 MG/200 ML RTUPB IV SCH ×2 (09:55→22:01)
--- NOTE | 2016-11-13 22:07 | EKG REPORT ---
SEVERITY:- ABNORMAL ECG - SINUS RHYTHM INFERIOR INFARCT, AGE INDETERMINATE BORDERLINE R WAVE PROGRESSION, ANTERIOR LEADS : Confirmed by: Blayne Zhou 13-Nov-2016 22:07:31
--- NOTE | 2016-11-13 22:38 | PROGRESS NOTE E ---
Progress Note NAME: DARRIAN BYRD : 1960 AGE: 56Y DATE: 11/13/2016 ROOM: 603 SUBJECTIVE: The patient has pseudocyst of the pancreas with abdominal pains. He has been complaining of pains and getting IV parenteral medications. We are awaiting transfer to [facility] said they are about 97% filled today and hopefully will have a room available for him in the next 24-48 hours. OBJECTIVE: In the meantime, his temperature is 99.2 degrees Fahrenheit. Abdomen: There is diffuse tenderness, and some voluntary guarding. He continues to have some shortness of breath but a chest x-ray showed minimal bibasilar atelectasis and moderate lung volumes. This was done early this morning. LABORATORY: His white count yesterday was 11.9. His alkaline phosphatase slightly elevated at 170 and triglycerides at 102 which was normal and amylase slightly elevated at 213 and lipase at 247. ASSESSMENT AND PLAN: I mentioned to him about possible transfer to [facility] if [facility] does not have a bed available yet but he said he prefers to go to [facility] rather than [facility]. Patient is going to talk to his about possibility of being transferred to [facility] and he will let me know about their decision. In the meantime, continue also with the IV antibiotic ,famotidine and hydration. DICTATING PHYSICIAN: YOSELIN WAYNE M.D. [id number] [id number] PHY#: [id number] ID: [id number] JOB#: [id number] ACCT: [id number] cc: > [facility]
[2016-11-14] MEDS ORDERED: DEXTROSE 40% GEL 15 GM TUBE X 2 PO PRN (01:37)
[2016-11-14] MEDS ORDERED: DEXTROSE 50%-WATER SYRINGE 12.5 GM/25 ML DOSE IV PRN (01:37)
[2016-11-14] MEDS ORDERED: DEXTROSE 50%-WATER SYRINGE 25 GM/50 ML DOSE IV PRN (01:37)
[2016-11-14] MEDS ORDERED: DEXTROSE 40% GEL 15 GM TUBE PO PRN (01:37)
[2016-11-14] MEDS ORDERED: GLUCAGON,HUMAN RECOMB 1 MG INJ IM PRN (01:37)
[2016-11-14] MEDS ORDERED: DEXTROSE 50%-WATER 25 GM/50 ML DISP.SYRIN IV ONE (01:45)
[2016-11-14] MEDS: METRONIDAZOLE 500 MG/NS RTU 100 ML IV SCH ×4 (02:00→20:48)
[2016-11-14] MEDS: NORMAL SALINE 1000 ML 1,000 ML IV PRN ×3 (04:11→17:19)
[2016-11-14] MEDS: MORPHINE SULFATE 10 MG/ML INJ IV PRN ×9 (04:18→20:47)
[2016-11-14 05:12] LABS: ABSOLUTE BASOPHILS # (AUTO) 0.1 10^3/uL (0.0-0.2); ABSOLUTE EOSINOPHILS # (AUTO) 0.1 10^3/uL (0.0-0.6); ABSOLUTE LYMPHOCYTES (AUTO) 0.5 10^3/uL (0.5-4.7); ABSOLUTE MONOCYTES (AUTO) 0.8 10^3/uL (0.1-1.4); ABSOLUTE NEUT (AUTO) 7.7 10^3/uL (1.7-8.2); BASOPHILS % (AUTO) 0.8 % (0-2); EOSINOPHILS % (AUTO) 1.5 % (0-6); HEMATOCRIT 29.9 % (37.9-51.0); HGB HCT DIFFERENCE 0.1; LYMPHOCYTES % (AUTO) 5.5 % (13-45); MEAN CORPUSCULAR HEMOGLOBIN 29.9 pg (27.0-33.4); MEAN CORPUSCULAR HGB CONC 33.3 g/dL (32.0-36.0); MEAN CORPUSCULAR VOLUME 90 fl (80-97); RED BLOOD COUNT 3.34 10^6/uL (4.35-5.55); RED CELL DISTRIBUTION WIDTH 14.6 % (11.5-14.0); SEGMENTED NEUTROPHILS % (AUTO) 83.2 % (42-78); WHITE BLOOD COUNT 9.2 10^3/uL (4.0-10.5)
[2016-11-14 05:23] LABS: ALANINE AMINOTRANSFERASE 33 U/L (21-72); ALBUMIN 2.4 g/dL (3.5-5.0); ALKALINE PHOSPHATASE 123 U/L (38-126); AMYLASE 152 U/L (30-110); ANION GAP 8 (5-19); ASPARTATE AMINO TRANSFERASE 14 U/L (17-59); BILIRUBIN,DIRECT 0.5 mg/dL (0.0-0.4); BILIRUBIN,TOTAL 0.6 mg/dL (0.2-1.3); BLOOD UREA NITROGEN 12 mg/dL (7-20); CALCIUM 8.3 mg/dL (8.4-10.2); CARBON DIOXIDE 24 mmol/L (22-30); CHLORIDE 102 mmol/L (98-107); CHOLESTEROL 106.52 mg/dL (0-200); CREATININE RESULT 0.57 mg/dL (0.52-1.25); Direct HDL 28 mg/dL (>40); GLUCOSE 94 mg/dL (75-110); LIPASE 151.7 U/L (23-300); MAGNESIUM 1.9 mg/dL (1.6-2.3); POTASSIUM 3.9 mmol/L (3.6-5.0); SODIUM 134.3 mmol/L (137-145); TOTAL PROTEIN 4.8 g/dL (6.3-8.2); TRIGLYCERIDES 61 mg/dL (<150)
[2016-11-14 05:34] LABS: DIRECT LDL 53 mg/dL (<100)
[2016-11-14] MEDS: KETOROLAC TROMETHAMINE INJ/PF 30 MG/1 ML SDV INJ PRN ×2 (08:08→22:04)
[2016-11-14] MEDS: FAMOTIDINE INJ/PF 20 MG/2 ML SDV IV SCH ×2 (09:34→22:04)
[2016-11-14] MEDS: CIPROFLOXACIN 400 MG/D5W RTU 400 MG/200 ML RTUPB IV SCH ×2 (09:35→22:03)
[2016-11-14] MEDS: ENOXAPARIN SODIUM INJ 40 MG/0.4 ML DISP.SYRIN SUBCUT SCH (09:36)
--- NOTE | 2016-11-14 12:37 | PROGRESS NOTE E ---
Progress Note NAME: DARRIAN BYRD : 1960 AGE: 56Y DATE: 11/14/2016 ROOM: 603 SUBJECTIVE: Patient is still complaining of diffuse abdominal pains but maybe slightly better compared to yesterday. He continues to pass flatus but no bowel movement for about a week now. PHYSICAL EXAMINATION: VITAL SIGNS: He is afebrile. His abdomen is diffusely tender with slight erythema. Patient able to tolerate clear liquids well this morning. LABORATORY: White count is down to 9.2 and hemoglobin is about 10. Electrolytes are within normal limits with a sodium just slightly low at 134.3. BUN and creatinine are normal. His blood sugar is normal at 94 with a calcium 8.3. LFTs are normal. The albumin is slightly low at 2.4 from 2.9 the other day. Amylase is lower at 152 from 213 yesterday and lipase of 151. PLAN: Still awaiting transfer to [facility] when bed available. In the meantime, he can be downgraded to [facility] from ICU care. Continue hydration and IV antibiotics and Pepcid. DICTATING PHYSICIAN: YOSELIN WAYNE M.D. [id number] PHY#: [id number] ID: [id number] JOB#: [id number] ACCT: [id number] cc: >
[2016-11-15] MEDS: METRONIDAZOLE 500 MG/NS RTU 100 ML IV SCH ×4 (04:34→20:15)
[2016-11-15] MEDS: MORPHINE SULFATE 10 MG/ML INJ IV PRN ×2 (08:35→22:01)
[2016-11-15] MEDS: CIPROFLOXACIN 400 MG/D5W RTU 400 MG/200 ML RTUPB IV SCH ×2 (09:32→22:11)
[2016-11-15] MEDS: ENOXAPARIN SODIUM INJ 40 MG/0.4 ML DISP.SYRIN SUBCUT SCH (09:32)
[2016-11-15] MEDS: FAMOTIDINE INJ/PF 20 MG/2 ML SDV IV SCH ×2 (09:33→22:11)
[2016-11-15] MEDS: NORMAL SALINE 1000 ML 1,000 ML IV PRN (16:08)
[2016-11-15] MEDS: KETOROLAC TROMETHAMINE INJ/PF 30 MG/1 ML SDV INJ PRN (16:10)
[2016-11-15] MEDS: ONDANSETRON HCL INJ/PF 4 MG/2 ML SDV IV PRN (16:11)
[2016-11-15] MEDS ORDERED: BISACODYL 10 MG SUPP.RECT PR PRN (16:38)
--- NOTE | 2016-11-15 18:08 | PROGRESS NOTE E ---
Progress Note NAME: DARRIAN BYRD : 1960 AGE: 56Y DATE: 11/15/2016 ROOM: 334 SUBJECTIVE: Patient still complaining of pains, though a little bit better compared to yesterday. He was just transferred from the ICU to [facility] yesterday. He had a small amount of bowel movement this morning and is asking to increase his diet from clear liquids to full liquids. OBJECTIVE: His abdomen is softer, but still has diffuse tenderness. PLAN: He feels that his pains are more in the lower abdomen, asking for some laxative. At this point, we will try first suppository since it is relatively less of problems than a p.o. laxative at this time. He feels that he usually takes MiraLAX at home for constipation. [facility] called and they said they still do not have a bed available for him. I had a long talk with the and the patient as to why the patient does not like [facility]. Apparently patient had a bad experience with one of the doctors at [facility] and that is why he does not like to go there. At any rate, if [facility] still does not have a bed by tomorrow, maybe we can call [facility] for a bed if the patient now is willing to be transferred there. I decrease his IV fluids to 150 mL an hour from 200 since he is passing out good urine output. He remains afebrile. Continue with the same management and increase diet to full liquids. DICTATING PHYSICIAN: YOSELIN WAYNE M.D. [id number] PHY#: [id number] ID: [id number] JOB#: [id number] ACCT: [id number] cc: >
[2016-11-16] MEDS: KETOROLAC TROMETHAMINE INJ/PF 30 MG/1 ML SDV INJ PRN ×3 (00:08→17:49)
[2016-11-16] MEDS: ONDANSETRON HCL INJ/PF 4 MG/2 ML SDV IV PRN (00:13)
[2016-11-16] MEDS: METRONIDAZOLE 500 MG/NS RTU 100 ML IV SCH ×2 (03:46→08:12)
[2016-11-16] MEDS: MORPHINE SULFATE 10 MG/ML INJ IV PRN ×6 (04:00→23:48)
[2016-11-16] MEDS: NORMAL SALINE 1000 ML 1,000 ML IV PRN (06:19)
[2016-11-16] MEDS: ENOXAPARIN SODIUM INJ 40 MG/0.4 ML DISP.SYRIN SUBCUT SCH (10:02)
[2016-11-16] MEDS: FAMOTIDINE INJ/PF 20 MG/2 ML SDV IV SCH ×2 (10:02→23:10)
[2016-11-16] MEDS: CIPROFLOXACIN 400 MG/D5W RTU 400 MG/200 ML RTUPB IV SCH (10:02)
--- NOTE | 2016-11-16 14:02 | PDOC PROGRESS REPORT ---
Subjective Progress Note for:: 11/16/16 Subjective:: Patient taking some p.o. Having lots of pain. Difficult to ascertain whether symptoms are better or worse compared to admission. Physical Exam Vital Signs: Temp Pulse Resp BP Pulse Ox 98.6 F 91 18 115/74 97 11/16/16 11:36 11/16/16 11:36 11/16/16 11:36 11/16/16 11:36 11/16/16 11:36 Intake & Output 11/15/16 11/16/16 11/17/16 06:59 06:59 06:59 Intake Total 4957 5185 150 Output Total 3450 3250 400 Balance 1507 1935 -250 Weight 84.1 kg 83.7 kg General appearance: PRESENT: other - Moderate distress Respiratory exam: PRESENT: other - Diminished in the bases bilaterally GI/Abdominal exam: PRESENT: other - Distended, tender, edematous. Likely small umbilical hernia. Results Laboratory Results: 11/14/16 04:50 11/14/16 04:50 Impressions: Chest X-Ray 11/12/16 00:00 IMPRESSION: Moderate lung volumes with minimal bibasilar atelectasis or scar. Right IJ line. Abdomen/Pelvis CT 11/12/16 13:54 IMPRESSION: There is a very large pancreatic pseudocyst with marked progression of disease since the earlier study of October 30. Assessment & Plan - Diagnosis (1) Pancreatic pseudocyst Is this a current diagnosis for this admission?: Yes Plan: Patient has persistent chronic abdominal pain, distention. Has been on a diet. Uncertain whether this is helping or exacerbating his abdominal pain. Plan: 1. Patient is apparently on transfer list to go to [facility]. No bed available. I am unaware of the receiving physician, or team.\ 2. I explained to the patient and his that patient's future treatment did include a strategic plan which appears to be lacking at this time. Furthermore the identification of a pancreatic expert who has an interest in managing complicated pancreatitis involving pseudocyst should be identified. It is the holiday weekend, but we will make an effort to communicate with healthcare providers at [facility] or other tertiary care facility. 3. I will review patient's imaging studies. Serious consideration will be given to make him n.p.o. and starting TPN.
[2016-11-16] MEDS ORDERED: DEXTROSE 10%-WATER 1,000 ML IV PRN (17:04)
[2016-11-16] MEDS: DEXTROSE 5%-LACTATED RINGERS 1,000 ML IV PRN (17:42)
[2016-11-16 18:45] LABS: ABSOLUTE BASOPHILS # (AUTO) 0.1 10^3/uL (0.0-0.2); ABSOLUTE EOSINOPHILS # (AUTO) 0.1 10^3/uL (0.0-0.6); ABSOLUTE LYMPHOCYTES (AUTO) 0.6 10^3/uL (0.5-4.7); ABSOLUTE MONOCYTES (AUTO) 0.8 10^3/uL (0.1-1.4); BASOPHILS % (AUTO) 0.9 % (0-2); EOSINOPHILS % (AUTO) 1.7 % (0-6); HEMATOCRIT 29.9 % (37.9-51.0); HEMOGLOBIN 10.1 g/dL (13.5-17.0); HGB HCT DIFFERENCE 0.4; LYMPHOCYTES % (AUTO) 7.3 % (13-45); MEAN CORPUSCULAR HEMOGLOBIN 29.9 pg (27.0-33.4); MEAN CORPUSCULAR VOLUME 88 fl (80-97); MONOCYTES % (AUTO) 9.6 % (3-13); RED BLOOD COUNT 3.39 10^6/uL (4.35-5.55); RED CELL DISTRIBUTION WIDTH 14.4 % (11.5-14.0); SEGMENTED NEUTROPHILS % (AUTO) 80.5 % (42-78); WHITE BLOOD COUNT 8.7 10^3/uL (4.0-10.5)
[2016-11-16 18:51] LABS: PROTHROMBIN TIME 18.1 SEC (11.4-15.4)
[2016-11-16 19:08] LABS: ALANINE AMINOTRANSFERASE 23 U/L (21-72); ALBUMIN 2.2 g/dL (3.5-5.0); ALKALINE PHOSPHATASE 98 U/L (38-126); ANION GAP 8 (5-19); ASPARTATE AMINO TRANSFERASE 13 U/L (17-59); BILIRUBIN,DIRECT 0.3 mg/dL (0.0-0.4); BILIRUBIN,TOTAL 0.5 mg/dL (0.2-1.3); BLOOD UREA NITROGEN 8 mg/dL (7-20); CARBON DIOXIDE 27 mmol/L (22-30); CHLORIDE 101 mmol/L (98-107); CREATININE RESULT 0.55 mg/dL (0.52-1.25); GLUCOSE 123 mg/dL (75-110); MAGNESIUM 1.8 mg/dL (1.6-2.3); POTASSIUM 3.7 mmol/L (3.6-5.0); SODIUM 135.9 mmol/L (137-145); TOTAL PROTEIN 4.5 g/dL (6.3-8.2); TRIGLYCERIDES 72 mg/dL (<150)
[2016-11-17] MEDS: DEXTROSE 5%-LACTATED RINGERS 1,000 ML IV PRN ×4 (00:02→22:51)
[2016-11-17] MEDS: MORPHINE SULFATE 10 MG/ML INJ IV PRN ×5 (06:13→22:52)
[2016-11-17] MEDS: ONDANSETRON HCL INJ/PF 4 MG/2 ML SDV IV PRN (06:23)
[2016-11-17 06:55] LABS: PHOSPHORUS 3.1 mg/dL (2.5-4.5)
[2016-11-17 07:01] LABS: PREALBUMIN 4.7 mg/dL (17.6-36.0)
[2016-11-17] MEDS ORDERED: DEXTROSE 10%-WATER 1,000 ML IV PRN (07:22)
[2016-11-17] MEDS: ENOXAPARIN SODIUM INJ 40 MG/0.4 ML DISP.SYRIN SUBCUT SCH (11:10)
[2016-11-17] MEDS ORDERED: ACETAMINOPHEN 325 MG TABLET PO ONE (14:30)
[2016-11-17] MEDS ORDERED: AMINO ACIDS 5%/D25W 1,000 ML IV PRN (18:00)
[2016-11-17 21:43] LABS: ALANINE AMINOTRANSFERASE 29 U/L (21-72); ALBUMIN 2.5 g/dL (3.5-5.0); ALKALINE PHOSPHATASE 90 U/L (38-126); ANION GAP 6 (5-19); ASPARTATE AMINO TRANSFERASE 22 U/L (17-59); BILIRUBIN,DIRECT 0.4 mg/dL (0.0-0.4); BILIRUBIN,TOTAL 0.4 mg/dL (0.2-1.3); BLOOD UREA NITROGEN 3 mg/dL (7-20); CALCIUM 8.2 mg/dL (8.4-10.2); CARBON DIOXIDE 33 mmol/L (22-30); CHLORIDE 99 mmol/L (98-107); CREATININE RESULT 0.53 mg/dL (0.52-1.25); GLUCOSE 145 mg/dL (75-110); POTASSIUM 3.1 mmol/L (3.6-5.0); SODIUM 137.7 mmol/L (137-145); TOTAL PROTEIN 5.2 g/dL (6.3-8.2)
--- NOTE | 2016-11-17 22:47 | PROGRESS NOTE E ---
Progress Note NAME: DARRIAN BYRD : 1960 AGE: 56Y DATE: 11/17/2016 ROOM: 334 SUBJECTIVE: Patient complaining of more abdominal pains. However, he remains afebrile. His white count was 8.7 yesterday with a hemoglobin stable at 10.1. His PT is 18.1 and INR 1.41. Electrolytes are normal. Glucose level is 133. Liver functions are normal. These were all done yesterday. OBJECTIVE: On examination, his abdomen is somewhat firm with diffuse tenderness. He claims he has not passed flatus today but had bowel movement and flatus yesterday. However, no nausea or vomiting. He is wary in taking any clear liquids at this time. However, I told him it is okay not to take anything by mouth since he was just started on TPN. PLAN: We are still awaiting placement for him at [facility]. Hopefully we will get a bed for him by tomorrow. DICTATING PHYSICIAN: YOSELIN WAYNE M.D. [id number] PHY#: [id number] ID: [id number] JOB#: [id number] ACCT: [id number] cc: >
[2016-11-18] MEDS: INSULIN REG, HUMAN 100 UNIT/ML 3 ML VIAL (PYX) SUBCUT PRN ×2 (01:10→12:50)
[2016-11-18] MEDS: MORPHINE SULFATE 10 MG/ML INJ IV PRN ×3 (01:10→09:16)
[2016-11-18 08:00] LABS: ALANINE AMINOTRANSFERASE 26 U/L (21-72); ALBUMIN 2.4 g/dL (3.5-5.0); ALKALINE PHOSPHATASE 83 U/L (38-126); ANION GAP 5 (5-19); ASPARTATE AMINO TRANSFERASE 31 U/L (17-59); BILIRUBIN,DIRECT 0.4 mg/dL (0.0-0.4); BILIRUBIN,TOTAL 0.4 mg/dL (0.2-1.3); BLOOD UREA NITROGEN 5 mg/dL (7-20); CALCIUM 8.1 mg/dL (8.4-10.2); CARBON DIOXIDE 36 mmol/L (22-30); CHLORIDE 98 mmol/L (98-107); CREATININE RESULT 0.51 mg/dL (0.52-1.25); GLUCOSE 144 mg/dL (75-110); POTASSIUM 3.1 mmol/L (3.6-5.0); SODIUM 139.4 mmol/L (137-145); TOTAL PROTEIN 5.2 g/dL (6.3-8.2)
[2016-11-18] MEDS: DEXTROSE 5%-LACTATED RINGERS 1,000 ML IV PRN (09:16)
[2016-11-18] MEDS: ENOXAPARIN SODIUM INJ 40 MG/0.4 ML DISP.SYRIN SUBCUT SCH (09:16)
[2016-11-18] MEDS: ONDANSETRON HCL INJ/PF 4 MG/2 ML SDV IV PRN (09:16)
[2016-11-18] MEDS ORDERED: MORPHINE SULFATE 60 MG/60 ML RTUINJ IV PRN (10:09)
[2016-11-18] MEDS ORDERED: ACETAMINOPHEN 325 MG TABLET PO PRN (10:11)
[2016-11-18] MEDS ORDERED: POTASSIUM CHLORIDE 20 MEQ/50 ML RTU IV ONE (10:30)
--- NOTE | 2016-11-18 12:12 | PROGRESS NOTE E ---
Progress Note NAME: DARRIAN BYRD : 1960 AGE: 56Y DATE: 11/18/2016 ROOM: [facility] SUBJECTIVE: Patient is still complaining of severe diffuse abdominal pains. He denies any vomiting, but has some nausea. He continues to pass flatus. OBJECTIVE: VITAL SIGNS: He remained afebrile with a heart rate of 89 per minute and blood pressure 118/79 with a pulse ox of 94% on room air. ABDOMEN: His abdomen remained distended, but relatively soft with diffuse tenderness. EXTREMITIES: No edema. PLAN: He was started on TPN yesterday and will be continued today. Since he is complaining about pain medication, when he asks why the nurse does not give it soon enough, I think the best thing is to put him on a DUKEY RIDER pump, which I just ordered. Also, he has been complaining of headaches and I ordered Tylenol every 6 hours as needed for headache. Meantime, we are still awaiting placement at [facility] and hopefully will have a bed for him today. DICTATING PHYSICIAN: YOSELIN WAYNE M.D. [id number] [id number] PHY#: [id number] ID: [id number] JOB#: [id number] ACCT: [id number] cc: >
[2016-11-18 12:31] VITALS: BP 129/81
[2016-11-18] MEDS ORDERED: MORPHINE SULFATE 10 MG/ML INJ IV ONE (14:00)
--- NOTE | 2016-11-18 14:42 | TRANSFER SUMMARY E ---
Transfer Summary NAME: DARRIAN BYRD : 1960 AGE: 56Y ADMITTED: 11/12/2016 TRANSFERRED: 11/18/2016 Transferred to [facility]. DIAGNOSIS: Chronic pancreatitis with recurrent abdominal pains and pseudocyst of the pancreas. HOSPITAL COURSE: This is a 56-year-old male who presented to the emergency room for the second time in 2 weeks complaining of epigastric abdominal pains with nausea and vomiting. He was seen at this facility on October 30 and transferred to tertiary care center for diagnosis of necrotizing pancreatitis. He states he was admitted for a few days and received IV fluids and hydration and then was discharged. However, his pains worsened throughout the last few days and came back to our emergency room. When he was admitted to [facility] from [facility] on October 30, his amylase was greater than 14,[address] scan showed evidence of about 30% necrotizing pancreatitis of the head and body with moderate amount of fluid surrounding the duodenum. Patient improved while at [facility] with normalization of his leukocytosis and significant reduction in his lipase to 1883 on 11/01/2016. Patient was told that the pseudocyst would dissolve and was discharged home. However, patient comes back to our Emergency Room here at [place] complaining of significant abdominal pains, distension, and distress. Because of our limitations with regards to endoscopic cyst gastrostomy by ultrasound guidance and no availability of public health teacher at this time in our hospital, patient is being transferred to [facility] today. In the meantime, patient has been having ongoing severe abdominal pains and requiring parenteral pain medications. He is not able to tolerate his diet well though had maybe a day of tolerating liquids and has been started on TPN for the past 2 days. PAST MEDICAL HISTORY: Hypertension and COPD. He did have a history of pancreatitis in the past around 2 years ago where he was admitted to [facility] with complication of prolonged intubation and eventual tracheostomy. Patient also went into renal failure at the time, however, there was no surgical intervention. He apparently had a tracheal surgery done at [facility] around that time. 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 SOCIAL HISTORY: Former smoker. Denies alcohol or recreational drug use. FAMILY HISTORY: Noncontributory. MEDICATIONS: 1. Albuterol. 2. Ferrous sulfate. 3. Gabapentin. 4. Lactulose. 5. Midchd-yutiajag-rkhxadj. 6. Lisinopril. 7. Meclizine. 8. Dulera inhaler. 9. Naprosyn. 10. Oxycodone. 11. Protonix. 12. MiraLax. ALLERGIES: DILAUDID. OBJECTIVE: GENERAL: On examination on the day of transfer, patient is afebrile. ABDOMEN: Distended but soft to firm with diffuse tenderness. There appears to be some ascites at the same time. Patient is agitated. He had a CT scan of the abdomen on admission on 11/12/16 which showed large pancreatic pseudocyst with marked progression of pancreatitis since the earlier study of October 30. Patient has been undergoing IV antibiotic therapy, respiratory support, hydration, parenteral pain medication, and TPN. DICTATING PHYSICIAN: YOSELIN WAYNE M.D. [id number] PHY#: [id number] ID: [id number] JOB#: [id number] ACCT: [id number] cc:YOSELIN WAYNE M.D. >
--- NOTE | 2016-11-19 09:43 | TRANSFER SUMMARY E ---
Transfer Summary NAME: DARRIAN BYRD : 1960 AGE: 56Y ADMITTED: 11/12/2016 TRANSFERRED: 11/18/2016 ADDENDUM: This is primarily his lab report: On 11/18/16 his sodium is 139.4, potassium is 3.1 but he had K-riders. Chloride is 98, CO2 is 36, anion gap of 5, BUN of 5, creatinine of 0.51. His GFR is greater than 60. Glucose is 144, his calcium is 8.1, total bili is 0.4, direct bili is 0.4, AST is 31, ALT is 26, alkaline phosphatase is 83, total protein of 5.2, albumin is 2.4. He had a blood culture on 11/12/2016 which showed no growth in 5 days. DICTATING PHYSICIAN: YOSELIN WAYNE M.D. [id number] [id number] PHY#: [id number] ID: [id number] JOB#: [id number] ACCT: [id number] cc:YOSELIN WAYNE M.D. >
[2016-11-19] MEDS ORDERED: FAT EMULSIONS 250 ML IV SCH (10:00)
== END 2016-11-18 14:18 | disposition short-term general hospital (02) | DRG 440 ==
LOC: ER 11:58 → EH 18:15 → UNDOADMIN 18:15 → EH 20:14 → ICU 22:35 → 3S 11-14 15:13
PROVIDERS: ATTEND Surgery
PROC: 02HV33Z Insertion of Infusion Device into Superior Vena Cava, Percutaneous Approach (ICD-10-PCS; principal; 2016-11-12)
PROC: 3E0336Z Introduction of Nutritional Substance into Peripheral Vein, Percutaneous Approach (ICD-10-PCS; 2016-11-17)
DX: K86.3 Pseudocyst of pancreas (principal); K86.1 Other chronic pancreatitis; I87.2 Venous insufficiency (chronic) (peripheral); I10 Essential (primary) hypertension; J44.9 Chronic obstructive pulmonary disease, unspecified; Z79.899 Other long term (current) drug therapy; Z87.891 Personal history of nicotine dependence; Z75.1 Person awaiting admission to adequate facility elsewhere; Z88.8 Allergy status to other drugs, medicaments and biological substances
CPT/HCPCS: 36415; 71010; 74177; 80053; 80061; 80307; 81001; 82150; 82374; 82803; 82962; 83690; 83735; 84100; 84134; 84478; 85025; 85610; 87040; 93005; 93010; 96361; 96374; 96375; 96376; 99285; C1751; J0744; J1642; J1650; J1815; J1885; J2270; J2405; J3480; J3490; J7030; S0028